=== PATIENT | male | born 1935 | race Caucasian/White ===

== ENCOUNTER → 2017-05-25 | Outpatient (CLI) | payer OTHER ==
[~2017-05-25] MED LIST: ALTACE10 MG PO; BACTRIM,SEPT1 TABLET PO; CHILDREN'S ASPI81 M1 PO; Coumadin,Jantoven PO; DECADRON4 MG PO; FLOMAX0.4 MG PO; FUROSEMIDE40 MG PO; Lipitor PO; Senokot S,Pericolace PO; Toprol XL PO; Vicodin,Norco 5/325 PO
== END | disposition home or self-care (01) ==
LOC: NUC 09:29
DX: C79.51 Secondary malignant neoplasm of bone (principal)
CPT/HCPCS: 78306; A9503

== ENCOUNTER → 2017-11-08 | Outpatient (CLI) | payer OTHER | END | disposition home or self-care (01) | LOC: NUC 09:44 | DX: C79.51 Secondary malignant neoplasm of bone (principal) | CPT/HCPCS: 78306; A9503 ==